=== PATIENT | male | born 1970 | race Caucasian/White ===

== ENCOUNTER 2021-05-18 00:55 | Day surgery (SDC) | payer BC, SELFPAY ==
[2021-04-30 10:04] VITALS: BMI 28.5
[2021-05-18 06:44] VITALS: BP 118/59; PULSE 61; RESP 18; TEMP 36.6; O2SAT 100; BMI 28.7
[2021-05-18] MEDS: LACTATED RINGERS 1,000 ML 150 ML IV CONT (07:02)
--- NOTE | 2021-05-18 07:52 | P.PNAN_ITS ---
Anes - Initial Pre Proc Eval Procedure: Operation Date: 05/18/21 08:00 Proposed Procedures p Screening Colonoscopy - Ian Arreola MD Date/Time: 05/18/21 07:52 Surgeon: Ian Arreola MD Pre Op Diagnosis: neoplasm screening Patient Data Age: 51 Gender: M Height: 1.85 m Weight: 98.7 kg Last Vital Signs Temp 97.8 F 05/18/21 06:44 Pulse 61 05/18/21 06:44 Resp 18 05/18/21 06:44 BP 118/59 L 05/18/21 06:44 Pulse Ox 100 05/18/21 06:44 Allergies Allergy/AdvReac Type Severity Reaction Status Date / Time Penicillins Allergy Unknown Unknown Verified 05/18/21 06:53 Home Medications Medication Instructions Recorded Confirmed Type rosuvastatin 20 mg tablet 20 mg PO DAILY #30 tablet 03/31/21 05/18/21 Rx Patient hx anesthesia problems: none Family hx anesthesia problems: none Results Review: All pre-operative results and documents have been reviewed as part of the pre-operative evaluation. [facility] Past Medical History Medical History (Updated 03/05/21 @ 09:50 by Esteban Ross MD) Body mass index (BMI) of 29.0 to 29.9 in adult Body mass index [BMI] 27.0-27.9, adult Elevated liver function tests Gout, unspecified Mixed hyperlipidemia Periorbital edema Screen for colon cancer Family History Family History Grandparent Family history of coronary artery disease Mother Family history of malignant neoplasm of breast in first degree relative Father Family history of throat cancer Other Cerebrovascular accident Social History Social History Smoking packs per day: 1 Smoking cigarettes per day: 20.0 Smoking status: Former smoker Tobacco type: cigarettes Alcohol intake: current Drinks per week: 8 Living arrangements: with family Spiritual care concerns: No Anes - Eval Final PreProcedure Day of Procedure 05/18/21 07:52 Patient weight: overweight Heart: regular rate and rhythm Lungs: clear to auscultation Airway: Mallampati scale class II Neurological: alert and oriented Last oral intake: >/= 8 hours ASA classification: II Emergent: no Anesthetic plan: proceed Anesthesia type and monitoring: general GIVS and standard monitoring Results Review: All pre-operative results and documents have been reviewed as part of the pre-operative evaluation. Informed Consent: The patient's anesthetic plan and its attendant risks and benefits were discussed with the patient/family/POA. Questions were solicited and answers provided to the satisfaction of the patient/family/POA.
--- NOTE | 2021-05-18 07:52 | WPDGICN ---
Assessment and Plan Assessment and plan (1) Screen for colon cancer: Code(s): Z12.11 - Encounter for screening for malignant neoplasm of colon Status: Acute Assessment and Plan: Patient presents for screening colonoscopy. He appears to be at average risk for colon polyps. GI Consult Note Consult date/time: 05/18/21 07:52 HPI: David Rodríguez is a 51 year old male Presents for screening colonoscopy. Patient's current weight appetite and bowel movements are normal. He denies abdominal pain. He has had no bleeding. Family history is noncontributory. Neoplasia screening colonoscopy to be performed today. Review of Systems Review of Systems: All systems reviewed & are unremarkable except as noted in HPI and below PMFSH Past Medical History Medical History (Updated 03/05/21 @ 09:50 by Esteban Ross MD) Body mass index (BMI) of 29.0 to 29.9 in adult Body mass index [BMI] 27.0-27.9, adult Elevated liver function tests Gout, unspecified Mixed hyperlipidemia Periorbital edema Screen for colon cancer Family History Family History Grandparent Family history of coronary artery disease Mother Family history of malignant neoplasm of breast in first degree relative Father Family history of throat cancer Other Cerebrovascular accident Social History Social History Smoking packs per day: 1 Smoking cigarettes per day: 20.0 Smoking status: Former smoker Tobacco type: cigarettes Alcohol intake: current Drinks per week: 8 Living arrangements: with family Spiritual care concerns: No Meds Home Medications and Allergies Home Medications Medication Instructions Recorded Confirmed Type rosuvastatin 20 mg tablet 20 mg PO DAILY #30 tablet 03/31/21 05/18/21 Rx Allergies Allergy/AdvReac Type Severity Reaction Status Date / Time Penicillins Allergy Unknown Unknown Verified 05/18/21 06:53 Vital Signs Vital Signs - 24 hr 05/18/21 06:44 Temperature 97.8 F Pulse Rate 61 Respiratory Rate 18 Blood Pressure 118/59 L Pulse Oximetry 100 Exam Narrative: Physical exam reveals patient be alert. Vital signs stable. HEENT exam is unremarkable. Patient is anicteric. Lungs are clear to auscultation and percussion. Heart is without murmur or extra sounds. Abdominal exam bowel sounds are present soft nontender with no organomegaly. Digital external rectal exam is normal.
[2021-05-18 08:31] VITALS: BP 93/60; PULSE 62; RESP 20; O2SAT 98
[2021-05-18 08:41] VITALS: BP 108/77; PULSE 61; RESP 19; O2SAT 100
[2021-05-18 08:51] VITALS: BP 116/81; PULSE 54; RESP 20; O2SAT 100
== END 2021-05-18 09:03 | disposition home or self-care (01) ==
PROVIDERS: PCP Family Medicine; Visit Provider Internal Medicine Gastroenterology
PROC: 0DJD8ZZ Inspection of Lower Intestinal Tract, Via Natural or Artificial Opening Endoscopic (ICD-10-PCS; CPT 45378; principal; 2021-05-18 08:00)
DX: Z12.11 Encounter for screening for malignant neoplasm of colon (principal); K62.1 Rectal polyp; K64.8 Other hemorrhoids; E78.2 Mixed hyperlipidemia; Z87.891 Personal history of nicotine dependence
CPT/HCPCS: 45380; 88305; J7120

== ENCOUNTER 2023-05-29 11:56 | Emergency (ER) | payer BC, SELFPAY ==
[2023-05-29 12:10] VITALS: BP 121/61; PULSE 75; RESP 18; TEMP 36.4; O2SAT 99
--- NOTE | 2023-05-29 12:12 | ED.GENADULT ---
HPI - General Adult General Chief complaint: Upper Respiratory Infection Stated complaint: congestion,cough Time Seen by Provider: 05/29/23 12:13 Source: patient Mode of arrival: ambulatory Limitations: no limitations History of Present Illness HPI narrative: 53-year-old male patient presents to the [facility] with complaints of coughing congestion for the past 10 days. Patient states he was having low-grade fevers, body aches and chills with runny nose and cough but most of the symptoms have resolved but continues to have some congestion and a cough. Patient states he is coughing up phlegm at times. Patient states he has been just taking [id number] cold and flu medication for his symptoms. Denies any chest pain or shortness of breath at this time. Denies any history of lung disease and denies being a smoker. Related Data Allergies Allergy/AdvReac Type Severity Reaction Status Date / Time Penicillins Allergy Unknown Unknown Verified 12/09/22 14:57 Review of Systems Review of Systems: CONSTITUTIONAL: Denies fever, chills, or sweats. EYES: Denies visual changes, redness, or discharge. ENT: Denies rhinorrhea, positive congestion, denies sore throat, or otalgia. CARDIOVASCULAR: Denies chest pain, palpitations, or edema. RESPIRATORY: Positive cough denies dyspnea. GASTROINTESTINAL: Denies abdominal pain, nausea, vomiting, or diarrhea. GENITOURINARY: Denies dysuria or hematuria. SKIN: Denies rash or itching. MUSCULOSKELETAL: Denies back pain, joint pain, or myalgia. NEUROLOGIC: Denies headache, numbness, or weakness. PSYCHIATRIC: Denies anxiety or depression. [facility] Past Medical History Medical History BMI 30.0-30.9,adult Body mass index (BMI) of 29.0 to 29.9 in adult Body mass index [BMI] 27.0-27.9, adult Decreased libido Elevated liver function tests Gout, unspecified Mixed hyperlipidemia Need for Tdap vaccination Periorbital edema Screen for colon cancer Family History Family History Grandparent Family history of coronary artery disease Mother Family history of malignant neoplasm of breast in first degree relative Father Family history of throat cancer Other Cerebrovascular accident Social History Social History Smoking packs per day: 1 Smoking cigarettes per day: 20.0 Smoking status: Former smoker Tobacco type: cigarettes Alcohol intake: current Drinks per week: 8 Substance use: never Lack of Transportation: No Lack of Food: Never True Current Housing: I Have Housing Concerned About Future Housing: No Difficulty Paying Gas/Electric Bills: No Difficulty Paying for Meds: No Currently Unemployed: No Education: High School Diploma/GED Difficulty w/ Childcare or Family Care: No Living arrangements: with family Spiritual care concerns: No Comments At the time of my signature I agree with nursing past medical history, surgical, social, and family history. There is no relevant family history pertinent to the presenting complaint. Exam Narrative: GENERAL: Well-appearing, well-nourished, and in no acute distress. HEAD: Normocephalic, atraumatic. EYES: PERRLA and EOMI. ENT: Nares clear, no rhinorrhea or epistaxis. Mucous membranes moist. posterior pharynx no erythema, tonsillar enlargement, exudates or lesions present. Bilateral TMs are clear no erythema foreign bodies the canal. NECK: Supple. No lymphadenopathy CHEST: Clear to auscultation. No respiratory distress. Patient able talk in clear complete sentences. HEART: Regular rate and rhythm. No murmur heard. Normal peripheral pulses. ABDOMEN: Soft, nontender, nondistended, normal active bowel sounds. EXTREMITIES: Normal range of motion. No edema. SKIN: Warm, dry, no rash. NEURO: No focal deficits. Alert and oriented x3. Course Course
== END 2023-05-29 12:42 | disposition home or self-care (01) ==
PROVIDERS: Emergency Provider Nurse Practitioner Family; PCP Family Medicine
DX: J06.9 Acute upper respiratory infection, unspecified (principal); Z87.891 Personal history of nicotine dependence; M10.9 Gout, unspecified; E78.2 Mixed hyperlipidemia
CPT/HCPCS: 99213; G0463

== ENCOUNTER 2023-08-19 11:55 | Outpatient (CLI) | payer BC, SELFPAY ==
--- NOTE | ~2023-08-19 | XR_ITS ---
Thoracic spine: Clinical Indication: T7 fracture AP and lateral views were performed. Mild compression deformity of T7 noted. No other definite fracture identified. The intervertebral dis c spaces appear normal. Paravertebral soft tissues appear normal. Impression: Mild compression fracture deformity of T7. Reviewed, dictated and finalized at [facility]. [employer] Impression: Mild compression fracture deformity of T7.
== END 2023-08-19 11:56 ==
PROVIDERS: PCP Family Medicine; Visit Provider Physician Assistant
DX: S22.069A Unspecified fracture of T7-T8 vertebra, initial encounter for closed fracture (principal); X58.XXXA Exposure to other specified factors, initial encounter
CPT/HCPCS: 72072

== ENCOUNTER 2024-11-19 08:39 | Outpatient (CLI) | payer BC, SELFPAY ==
--- NOTE | ~2024-11-19 | XR_ITS ---
AP view of the pelvis and AP and lateral views of the right hip Clinical history: Pain Findings: No acute fracture or dislocation is seen. There is advanced degenerative change of the righ t hip, with superior joint space narrowing and femoral head extension osteophyte formation. Left hip joint intact. Soft tissues are unremarkable. 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 Reviewed, dictated and finalized at location . 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
== END 2024-11-19 08:40 | disposition home or self-care (01) ==
PROVIDERS: PCP Family Medicine; Visit Provider Nurse Practitioner Family
DX: M16.11 Unilateral primary osteoarthritis, right hip (principal)
CPT/HCPCS: 73502